=== PATIENT | male | born 1995 | race American Indian/Alaskan Native ===

== ENCOUNTER 2020-11-16 17:14 | Emergency (ER) | payer SELFPAY ==
[2020-11-16 17:35] VITALS: BP 115/74
[2020-11-16] MEDS ORDERED: TETANUS,DIPH,PERTUSS(ACELL) VACCINE 0.5 ML SYRINGE IM ONE (17:55)
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
[2020-11-16] MEDS ORDERED: traMADol 50 MG TAB PO ONE (20:35)
== END 2020-11-16 20:45 ==
LOC: ED 17:14
DX: S61.411A Laceration without foreign body of right hand, initial encounter (principal); S69.91XA Unspecified injury of right wrist, hand and finger(s), initial encounter; F17.290 Nicotine dependence, other tobacco product, uncomplicated; W22.8XXA Striking against or struck by other objects, initial encounter; Y93.89 Activity, other specified; Y92.89 Other specified places as the place of occurrence of the external cause; Y99.8 Other external cause status
CPT/HCPCS: 12001; 73120; 90471; 90715; 99283; A6021

== ENCOUNTER 2020-12-27 12:32 | Emergency (ER) | payer OTHER ==
[2020-12-27 13:52] VITALS: BP 137/75
--- NOTE | 2020-12-27 15:42 | Emergency Department Report ---
ED Back Pain/Injury HPI - General Chief Complaint: Back Pain/Injury Stated Complaint: BACK PAIN Time Seen by Provider: 12/27/20 15:36 Source: patient Limitations: No Limitations - History of Present Illness Initial Comments: 25-year-old male presents to the ER today with complaints of low back pain. Patient states that his symptoms started about 3 days ago when he was lifting h is fish tank. Patient states that the tank is a 20 or 30 gallon tank and he was full of water at the time that he was lifting it. Patient states that the pain had improved the Sunday, but then returned again Sunday night and he thinks that when he bent over again to lift up the grill it triggered his back to hurt again. He states that the pain has been intermittent since Sunday, worse with bending but nonradiating. He denies any associated abdominal pain, saddle anesthesia, lower extremity numbness, tingling or weakness, bowel or bladder incontinence, fever or chills. He states that he has not tried anything for the pain. MD Complaint: back injury -: days(s) (3) - Related Data Previous Rx's Medication Instructions Recorded Last Taken Type cephALEXin [Keflex] 500 mg PO Q12HR 7 Days #14 cap 11/16/20 Unknown Rx traMADoL [Ultram 50 MG tab] 50 mg PO Q6HR PRN #12 tablet 11/16/20 Unknown Rx Ibuprofen [Motrin 800 MG tab] 800 mg PO Q8H PRN #21 tablet 12/27/20 Unknown Rx methOCARBAMOL [Robaxin TAB] 750 mg PO Q8H PRN #30 tablet 12/27/20 Unknown Rx Allergies Allergy/AdvReac Type Severity Reaction Status Date / Time No Known Allergies Allergy Verified 12/27/20 13:52 ED Review of Systems ROS: Stated complaint: BACK PAIN Other details as noted in HPI Comment: All other systems reviewed and negative Eyes: denies: eye pain, eye discharge, vision change ENT: denies: ear pain, throat pain Respiratory: denies: cough, shortness of breath, SOB with exertion, SOB at rest, wheezing Cardiovascular: denies: chest pain, palpitations, dyspnea on exertion Gastrointestinal: denies: abdominal pain, nausea, vomiting, diarrhea, constipation, hematemesis, hematochezia Genitourinary: denies: urgency, dysuria, frequency, hematuria, discharge, testicular pain, testicular mass Musculoskeletal: back pain. denies: joint swelling, arthralgia Skin: denies: rash, lesions Neurological: denies: headache, weakness, numbness, paresthesias, confusion, abnormal gait, vertigo Psychiatric: denies: anxiety, depression, auditory hallucinations, visual hallucinations, homicidal thoughts, suicidal thoughts Hematological/Lymphatic: denies: easy bleeding, easy bruising, swollen glands ED Past Medical Hx - Past Medical History Previous Medical History?: No - Surgical History Past Surgical History?: No - Social History Smoking Status: Current Some Day Smoker Substance Use Type: Marijuana - Medications Home Medications: Home Medications Medication Instructions Recorded Confirmed Last Taken Type cephALEXin [Keflex] 500 mg PO Q12HR 7 Days #14 cap 11/16/20 Unknown Rx traMADoL [Ultram 50 MG tab] 50 mg PO Q6HR PRN #12 tablet 11/16/20 Unknown Rx Ibuprofen [Motrin 800 MG tab] 800 mg PO Q8H PRN #21 tablet 12/27/20 Unknown Rx methOCARBAMOL [Robaxin TAB] 750 mg PO Q8H PRN #30 tablet 12/27/20 Unknown Rx ED Physical Exam - General Limitations: No Limitations General appearance: alert, in no apparent distress - Head Head exam: Present: atraumatic, normocephalic, normal inspection - Eye Eye exam: Present: normal appearance, PERRL, EOMI Pupils: Present: normal accommodation - ENT ENT exam: Present: normal exam, mucous membranes moist, TM's normal bilaterally - Neck Neck exam: Present: normal inspection, full ROM - Respiratory Respiratory exam: Present: normal lung sounds bilaterally. Absent: respiratory distress, wheezes, rales, rhonchi - Cardiovascular Cardiovascular Exam: Present: regular rate, normal rhythm, normal heart sounds - GI/Abdominal GI/Abdominal exam: Present: soft. Absent: distended, tenderness, guarding, rebound - Back Exam Back exam: Present: normal inspection, full ROM (but with some pain on flexion ), muscle spasm (paraspinal muscle of mid lumbar area ). Absent: tenderness, CVA tenderness (R), paraspinal tenderness, vertebral tenderness, rash noted - Neurological Exam Neurological exam: Present: alert, oriented X3, CN II-XII intact, normal gait - Psychiatric Psychiatric exam: Present: normal affect, normal mood - Skin Skin exam: Present: intact ED Course Vital Signs 12/27/20 13:50 Temperature 99.5 F Pulse Rate 72 Respiratory 20 Rate Blood Pressure 137/75 [Left] O2 Sat by Pulse 100 Oximetry ED Medical Decision Making - Medical Decision Making The patient presented with acute back pain. The patient is now resting comfortably and is alert, talkative, interactive and in no distress. The patient is neurologically intact and is ambulatory in the ED. the patient has no fever, no bowel or bladder incontinence, no saddle anesthesia and is otherwise alert and well-appearing. His history, and physical examination does not suggest the presence of acute spinal epidural abscess, acute epidural bleed, cauda equina syndrome, or other acute process requiring further testing, treatment or consultation in the emergency department. Suspect muscle strain/muscle spasm at this time.His vital signs have been stable. The patient condition is stable and appropriate for discharge. The patient will pursue further outpatient evaluation with the primary care physician or other [facility] or consulting physician as indicated in the discharge instructions. Critical care attestation.: If time is entered above; I have spent that time in minutes in the direct care of this critically ill patient, excluding procedure time. ED Disposition Clinical Impression: Lumbar strain, Lumbar paraspinal muscle spasm Disposition: HOME / SELF CARE / HOMELESS Is pt being admited?: No Does the pt Need Aspirin: No Condition: Stable Instructions: Muscle Cramps and Spasms, [id number], Lumbosacral Strain Additional Instructions: I recommend taking ibuprofen and the Robaxin as prescribed. Recommend doing some of the back stretching exercises listed on your discharge instructions. Follow up with your PCP in 1 week. Return to ED if worse. Prescriptions: Ibuprofen [Motrin 800 MG tab] 800 mg PO Q8H PRN #21 tablet PRN Reason: Pain methOCARBAMOL [Robaxin TAB] 750 mg PO Q8H PRN #30 tablet PRN Reason: Muscle Spasm Referrals: MACY ANGUIANO MD [Staff Physician] - 3-5 Days [facility] [Provider Group] - 3-5 Days Forms: Work/School Release Form(ED) Time of Disposition: 15:59
== END 2020-12-27 17:33 | disposition home or self-care (01) ==
LOC: ED 12:32
DX: S39.012A Strain of muscle, fascia and tendon of lower back, initial encounter (principal); M62.830 Muscle spasm of back; F17.200 Nicotine dependence, unspecified, uncomplicated; F12.90 Cannabis use, unspecified, uncomplicated; Z79.899 Other long term (current) drug therapy; X50.0XXA Overexertion from strenuous movement or load, initial encounter; Y93.89 Activity, other specified; Y92.89 Other specified places as the place of occurrence of the external cause; Y99.8 Other external cause status
CPT/HCPCS: 99281

== ENCOUNTER 2021-08-24 12:53 | Emergency (ER) | payer SELFPAY ==
[2021-08-24] MEDS ORDERED: KETOROLAC 10 MG TAB PO ONE (14:35)
[2021-08-24] MEDS ORDERED: oxyCODONE /ACETAMINOPHEN 5-325MG TAB PO ONE (14:36)
[2021-08-24] MEDS ORDERED: LIDOCAINE (1%) 10 MG/1 ML VIAL 20 ML MDV INFILTRATI ONE (14:37)
[2021-08-24 15:06] VITALS: BP 129/68
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
== END 2021-08-24 15:51 | disposition home or self-care (01) ==
LOC: ED 12:53
DX: S81.812A Laceration without foreign body, left lower leg, initial encounter (principal); Z79.899 Other long term (current) drug therapy; W01.0XXA Fall on same level from slipping, tripping and stumbling without subsequent striking against object, initial encounter; Y93.89 Activity, other specified; Y92.89 Other specified places as the place of occurrence of the external cause; Y99.8 Other external cause status
CPT/HCPCS: 99282

== ENCOUNTER 2021-09-03 11:19 | Emergency (ER) | payer SELFPAY ==
--- NOTE | 2021-09-03 14:48 | Emergency Department Report ---
ED General Adult HPI - General Chief complaint: Laceration/Recheck/Suture Stated complaint: LEG Time Seen by Provider: 09/03/21 14:35 Source: patient Mode of arrival: Ambulatory Limitations: No Limitations - History of Present Illness Initial comments: Patient 26-year-old male who comes in for follow-up status post laceration repair to posterior left knee 7 days ago. Patient denies fevers or chills denies symptoms. States some serosanguineous drainage no fevers no chills. 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 Patient denies pain. There are no other relieving or aggravating factors. - Related Data Previous Rx's Medication Instructions Recorded Last Taken Type cephALEXin [Keflex] 500 mg PO Q12HR 7 Days #14 cap 11/16/20 Unknown Rx traMADoL [Ultram 50 MG tab] 50 mg PO Q6HR PRN #12 tablet 11/16/20 Unknown Rx Ibuprofen [Motrin 800 MG tab] 800 mg PO Q8H PRN #21 tablet 12/27/20 Unknown Rx methOCARBAMOL [Robaxin TAB] 750 mg PO Q8H PRN #30 tablet 12/27/20 Unknown Rx Ketorolac [Toradol] 10 mg PO Q6H PRN #12 tab 08/24/21 Unknown Rx Mupirocin [Bactroban 2%] 1 applic TP BID #1 tube 08/24/21 Unknown Rx cephALEXin [Keflex] 500 mg PO Q8HR 7 Days #21 cap 09/03/21 Unknown Rx Allergies Allergy/AdvReac Type Severity Reaction Status Date / Time No Known Allergies Allergy Verified 08/24/21 15:09 ED Review of Systems ROS: Stated complaint: LEG Other details as noted in HPI Constitutional: denies: chills, fever Eyes: denies: eye pain, eye discharge, vision change ENT: denies: ear pain, throat pain Respiratory: denies: cough, shortness of breath, wheezing Cardiovascular: denies: chest pain, palpitations Endocrine: no symptoms reported Gastrointestinal: denies: abdominal pain, nausea, diarrhea Genitourinary: denies: urgency, dysuria Musculoskeletal: denies: back pain, joint swelling, arthralgia Skin: other (Sutures to left posterior knee laceration site). denies: rash, lesions Neurological: denies: headache, weakness, paresthesias Psychiatric: denies: anxiety, depression Hematological/Lymphatic: denies: easy bleeding, easy bruising ED Past Medical Hx - Past Medical History Previous Medical History?: Yes Additional medical history: Left leg pain - Surgical History Past Surgical History?: No - Social History Smoking Status: Never Smoker Substance Use Type: None - Medications Home Medications: Home Medications Medication Instructions Recorded Confirmed Last Taken Type cephALEXin [Keflex] 500 mg PO Q12HR 7 Days #14 cap 11/16/20 08/24/21 Unknown Rx traMADoL [Ultram 50 MG tab] 50 mg PO Q6HR PRN #12 tablet 11/16/20 08/24/21 Unknown Rx Ibuprofen [Motrin 800 MG tab] 800 mg PO Q8H PRN #21 tablet 12/27/20 08/24/21 Unknown Rx methOCARBAMOL [Robaxin TAB] 750 mg PO Q8H PRN #30 tablet 12/27/20 08/24/21 Unknown Rx Ketorolac [Toradol] 10 mg PO Q6H PRN #12 tab 08/24/21 Unknown Rx Mupirocin [Bactroban 2%] 1 applic TP BID #1 tube 08/24/21 Unknown Rx cephALEXin [Keflex] 500 mg PO Q8HR 7 Days #21 cap 09/03/21 Unknown Rx ED Physical Exam - General Limitations: No Limitations General appearance: alert, in no apparent distress - Head Head exam: Present: atraumatic, normocephalic - Eye Eye exam: Present: normal appearance, EOMI Pupils: Present: normal accommodation - ENT ENT exam: Present: mucous membranes moist - Neck Neck exam: Present: normal inspection - Respiratory Respiratory exam: Present: normal lung sounds bilaterally. Absent: respiratory distress - Cardiovascular Cardiovascular Exam: Present: regular rate, normal rhythm, normal heart sounds. Absent: systolic murmur, diastolic murmur, rubs, gallop - GI/Abdominal GI/Abdominal exam: Present: soft, normal bowel sounds. Absent: distended, tenderness - Rectal Rectal exam: Present: deferred - Extremities Exam Extremities exam: Present: normal inspection, full ROM - Expanded Lower Extremity Exam Left Lower Leg exam: Present: full ROM, swelling, laceration (Healing sutures in pl [place] edges well approximated some mild serous drainage noted range of motion is intact unrestricted). Absent: tenderness, erythema, palpable cord, Lupe's sign Ankle exam: Present: full ROM. Absent: tenderness Foot/Toe exam: Present: full ROM. Absent: tenderness Gait: Positive: observed and normal - Back Exam Back exam: Present: normal inspection, full ROM. Absent: tenderness - Neurological Exam Neurological exam: Present: alert, oriented X3, CN II-XII intact, normal gait - Expanded Neurological Exam Expanded Motor strength exam: RUE: 5, LUE: 5, RLE: 5, LLE: 5 - Psychiatric Psychiatric exam: Present: normal affect, normal mood - Skin Skin exam: Present: warm, dry, normal color, other (Laceration site as above). Absent: rash ED Course Vital Signs 09/03/21 11:34 Temperature 98.1 F Pulse Rate 54 L Respiratory 18 Rate Blood Pressure 130/69 O2 Sat by Pulse 100 Oximetry ED Medical Decision Making - Medical Decision Making Visit for wound check mild serous drainage no purulent drainage. Edges well approximated sutures are intact. Patient given follow-up wound care instructions will return in 3 to 4 days for suture removal. He verbalized agreement understanding discharge plan. Patient DC'd home in stable condition at this time Critical care attestation.: If time is entered above; I have spent that time in minutes in the direct care of this critically ill patient, excluding procedure time. 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 Return in 3 to 4 days for suture removal. Prescriptions: cephALEXin [Keflex] 500 mg PO Q8HR 7 Days #21 cap Referrals: [facility] [Provider Group] - 3-5 Days Forms: Work/School Release Form(ED) Time of Disposition: 14:51
[2021-09-03 15:25] VITALS: BP 125/74
== END 2021-09-03 15:26 | disposition home or self-care (01) ==
LOC: ED 11:19
DX: S81.012D Laceration without foreign body, left knee, subsequent encounter (principal); X58.XXXD Exposure to other specified factors, subsequent encounter; Z48.00 Encounter for change or removal of nonsurgical wound dressing
CPT/HCPCS: 99282

== ENCOUNTER 2021-09-13 08:43 | Emergency (ER) | payer SELFPAY ==
[2021-09-13 09:43] VITALS: BP 137/74
--- NOTE | 2021-09-13 09:51 | Emergency Department Report ---
ED Recheck HPI - General Chief Complaint: Laceration/Recheck/Suture Stated Complaint: STITCH REMOVAL Time Seen by Provider: 09/13/21 09:50 Source: patient Mode of arrival: Ambulatory Limitations: No Limitations - History of Present Illness Initial Comments: 26-year-old comes to the emergency room for suture removal. He has sutures behind his left knee. There is no pathological redness. No fever or chills. No evidence of cellulitis MD Complaint: suture/staple removal -: days(s) Initial Visit For: laceration Returns Today for: staple/Stitch removal - Related Data Previous Rx's Medication Instructions Recorded Last Taken Type cephALEXin [Keflex] 500 mg PO Q12HR 7 Days #14 cap 11/16/20 Unknown Rx traMADoL [Ultram 50 MG tab] 50 mg PO Q6HR PRN #12 tablet 11/16/20 Unknown Rx Ibuprofen [Motrin 800 MG tab] 800 mg PO Q8H PRN #21 tablet 12/27/20 Unknown Rx methOCARBAMOL [Robaxin TAB] 750 mg PO Q8H PRN #30 tablet 12/27/20 Unknown Rx Ketorolac [Toradol] 10 mg PO Q6H PRN #12 tab 08/24/21 Unknown Rx Mupirocin [Bactroban 2%] 1 applic TP BID #1 tube 08/24/21 Unknown Rx cephALEXin [Keflex] 500 mg PO Q8HR 7 Days #21 cap 09/03/21 Unknown Rx Allergies Allergy/AdvReac Type Severity Reaction Status Date / Time No Known Allergies Allergy Verified 08/24/21 15:09 ED Review of Systems ROS: Stated complaint: STITCH REMOVAL Other details as noted in HPI Comment: All other systems reviewed and negative ED Past Medical Hx - Past Medical History Previous Medical History?: No Additional medical history: Left leg pain - Surgical History Past Surgical History?: No - Family History Family history: no significant - Social History Smoking Status: Never Smoker Substance Use Type: None - Medications Home Medications: Home Medications Medication Instructions Recorded Confirmed Last Taken Type cephALEXin [Keflex] 500 mg PO Q12HR 7 Days #14 cap 11/16/20 08/24/21 Unknown Rx traMADoL [Ultram 50 MG tab] 50 mg PO Q6HR PRN #12 tablet 11/16/20 08/24/21 Unknown Rx Ibuprofen [Motrin 800 MG tab] 800 mg PO Q8H PRN #21 tablet 12/27/20 08/24/21 Unknown Rx methOCARBAMOL [Robaxin TAB] 750 mg PO Q8H PRN #30 tablet 12/27/20 08/24/21 Unknown Rx Ketorolac [Toradol] 10 mg PO Q6H PRN #12 tab 08/24/21 Unknown Rx Mupirocin [Bactroban 2%] 1 applic TP BID #1 tube 08/24/21 Unknown Rx cephALEXin [Keflex] 500 mg PO Q8HR 7 Days #21 cap 09/03/21 Unknown Rx ED Physical Exam - General Limitations: No Limitations General appearance: alert, in no apparent distress - Head Head exam: Present: atraumatic, normocephalic - Eye Eye exam: Present: normal appearance - ENT ENT exam: Present: mucous membranes moist - Neck Neck exam: Present: normal inspection - Respiratory Respiratory exam: Present: normal lung sounds bilaterally. Absent: respiratory distress - Cardiovascular Cardiovascular Exam: Present: regular rate, normal rhythm. Absent: systolic murmur, diastolic murmur, rubs, gallop - GI/Abdominal GI/Abdominal exam: Present: soft, normal bowel sounds - Rectal Rectal exam: Present: deferred - Extremities Exam Extremities exam: Present: normal inspection - Back Exam Back exam: Present: normal inspection - Neurological Exam Neurological exam: Present: alert, oriented X3 - Psychiatric Psychiatric exam: Present: normal affect, normal mood - Skin Skin exam: Present: warm, dry, intact, normal color. Absent: rash ED Course Vital Signs 09/13/21 09:42 Temperature 97.9 F Pulse Rate 50 L Respiratory 16 Rate Blood Pressure 137/74 O2 Sat by Pulse 98 Oximetry ED Recheck [facility] - Core Measures Measure Exclusions: not indicated - Differential Diagnosis Suture/Staple Removal - Medical Decision Making Sutures removed without difficulty. Patient educated on wound care. Patient discharged home with discharge plan of care including diet, activity, medications and follow-up. He verbalizes understanding Vital Signs 09/13/21 09:42 Temperature 97.9 F Pulse Rate 50 L Respiratory 16 Rate Blood Pressure 137/74 O2 Sat by Pulse 98 Oximetry Critical care attestation.: If time is entered above; I have spent that time in minutes in the direct care of this critically ill patient, excluding procedure time. ED Disposition Clinical Impression: Visit for suture removal Disposition: HOME / SELF CARE / HOMELESS Is pt being admited?: No Does the pt Need Aspirin: No Condition: Stable Instructions: Wound Closure Removal, Care After Time of Disposition: 09:59
== END 2021-09-13 18:38 | disposition home or self-care (01) ==
LOC: ED 08:43
DX: S81.012D Laceration without foreign body, left knee, subsequent encounter (principal); X58.XXXD Exposure to other specified factors, subsequent encounter
CPT/HCPCS: 99282